=== PATIENT | female | born 2000 | race Caucasian/White ===

== ENCOUNTER 2020-08-08 20:05 | Emergency (ER) | payer SELFPAY ==
[~2020-08-08 20:05] MED LIST: BACTRIM DS TAB1 EACH PO; Bromphed DM PO; COLACE 100MG C100 MG PO; FLONASE 0.05% N16 GM; ZOFRAN4 MG PO
[2020-08-08] MEDS ORDERED: IBUPROFEN600 MG PO (21:21)
== END 2020-08-08 22:20 | disposition home or self-care (01) ==
LOC: ER1 20:05
DX: S93.401A Sprain of unspecified ligament of right ankle, initial encounter (principal); S93.601A Unspecified sprain of right foot, initial encounter; F17.200 Nicotine dependence, unspecified, uncomplicated; W19.XXXA Unspecified fall, initial encounter; Z91.040 Latex allergy status
CPT/HCPCS: 73610; 73630; 96372; 99283; J1885

== ENCOUNTER → 2021-07-06 | Emergency (ER) | payer OTHER ==
[~2021-07-06] MED LIST changes: +CEFDINIR300 MG PO; +DIFLUCAN150 MG PO; +IBUPROFEN600 MG PO
[2021-07-06 09:19] LABS: HEMOGLOBIN 14.4 gm/dl (12.3-15.3); RED BLOOD COUNT 4.4 M/UL (4.00-5.10); WHITE BLOOD COUNT 4.3 K/UL (4.5-11.0)
[2021-07-06 09:48] LABS: BUN/CREATININE RATIO 11 (0-10)
== END | disposition home or self-care (01) ==
LOC: ER1 08:45
PROVIDERS: Nurse Practitioner
DX: U07.1 COVID-19 (principal); N93.9 Abnormal uterine and vaginal bleeding, unspecified; N89.8 Other specified noninflammatory disorders of vagina
CPT/HCPCS: 0240U; 71045; 76817; 80053; 81001; 84702; 85025; 87086; 96374; 99284; J2405